=== PATIENT | female | born 1990 | race Caucasian/White ===

== ENCOUNTER 2020-07-18 06:49 | Outpatient (NON) | payer OTHER, SELFPAY ==
[2020-07-18 17:59] LABS: SARS-CoV-2 RNA PCR Negative
== END 2020-07-18 06:50 ==
PROVIDERS: PCP Family Medicine; Visit Provider Family Medicine
DX: Z20.828 Contact with and (suspected) exposure to other viral communicable diseases (principal); J02.9 Acute pharyngitis, unspecified; R50.9 Fever, unspecified; R51.9 Headache, unspecified
CPT/HCPCS: 87635; C9803; U0003

== ENCOUNTER 2020-09-15 06:54 | Outpatient (NON) | payer OTHER, SELFPAY ==
[2020-09-15 23:36] LABS: SARS-CoV-2 RNA PCR Negative
== END 2020-09-15 06:55 ==
LOC: ANHCOVIDDT 07:18
PROVIDERS: PCP Family Medicine; Visit Provider Family Medicine
DX: R51.9 Headache, unspecified (principal); R09.81 Nasal congestion; Z20.828 Contact with and (suspected) exposure to other viral communicable diseases
CPT/HCPCS: 87635; C9803; U0003

== ENCOUNTER 2020-10-01 10:55 | Outpatient (NON) | payer OTHER, SELFPAY ==
[2020-10-01 22:01] LABS: SARS-CoV-2 RNA PCR Negative
== END 2020-10-01 10:56 ==
LOC: ANHCOVIDDT 10:56
PROVIDERS: PCP Family Medicine; Visit Provider Physician Assistant
DX: Z20.828 Contact with and (suspected) exposure to other viral communicable diseases (principal); R68.89 Other general symptoms and signs
CPT/HCPCS: 87635; C9803; U0003

== ENCOUNTER 2021-10-26 12:16 | Emergency (ER) | payer OTHER, SELFPAY ==
[2021-10-26 12:22] VITALS: BP 129/89; PULSE 98; RESP 12; TEMP 36.9; O2SAT 100
--- NOTE | 2021-10-26 12:24 | ED.URI ---
HPI - URI/Sore Throat General Chief Complaint: Upper Respiratory Infection Stated Complaint: Congestion Time Seen by Provider: 10/26/21 12:27 Source: patient Mode of arrival: ambulatory Limitations: no limitations History of Present Illness HPI Narrative: 31-year-old female presenting for complaint of sinus pressure and congestion, headache, and nonproductive cough for about 3 days. She endorses sick contacts, boyfriend's covid negative. She is vaccinated for COVID, however needs a booster. Denies chest pain, palpitations, shortness of breath, wheezing, nausea, vomiting, diarrhea, fever or chills. MD elicited complaint: cough Related Data Home Medications Medication Instructions Recorded Confirmed venlafaxine 75 mg tablet 75 mg PO DAILY 10/28/19 Allergies Allergy/AdvReac Type Severity Reaction Status Date / Time No Known Allergies Allergy Verified 04/23/20 16:30 Review of Systems Review of Systems: CONSTITUTIONAL: denies malaise, chills, sweats, fever. EYES: Denies visual changes, redness, or discharge. ENT: Reports rhinorrhea, congestion, sinus pain denies otalgia and sore throat. CARDIOVASCULAR: Denies chest pain, palpitations, or edema. RESPIRATORY: Reports cough, post nasal drainage. Denies dyspnea. GASTROINTESTINAL: Denies abdominal pain, nausea, vomiting, diarrhea SKIN: Denies rash or itching. MUSCULOSKELETAL: Denies myalgia. NEUROLOGIC: Denies headache. [facility] Family History Family History Mother Family history of bipolar disorder Family history of migraine headaches Other No family history of cardiovascular disease No family history of hypertension Social History Social History Smoking status: Never smoker Alcohol intake: current Exam Narrative: GENERAL: Ill-appearing, nontoxic no acute distress. HEAD: Normocephalic EYES: PERRLA, conjunctivae clear ENT: Mucous membranes moist. TM pearly irizarry with dull light reflex Left; Right TM unable to visualize due to excess cerumen; no tragal tenderness. Oropharynx erythematous without lesions. NECK: Supple. No lymphadenopathy CHEST: Clear to auscultation, breath sounds equal. No wheezing, rhonchi, rales, or stridor. No respiratory distress, speaks in full sentences. HEART: Regular rate and rhythm. No murmur heard. SKIN: Warm, dry, no rash. NEURO: Alert and oriented x3. PSYCH: Normal mood and affect Course Course Emergency Course: Patient is aware of diagnosis, understands and agrees to treatment plan. Anticipatory guidance given. Patient agrees to follow-up as directed and is aware of reasons to seek care at the emergency department. Portions of this record may have been created with voice recognition software Level of Care: Express Care Visit Vital Signs Vital signs: reviewed Procedures Ear Wax Removal Right Ear: Ear Wax Removal Date: 10/26/21 Ear Wax Removal Time: 12:50 Cerumenolytic Used: other (water/peroxide) Results: Re-examined: cerumen removed completely TM Examination: TM(s) intact, normal appearance Ear Canal Exam: atraumatic Patient Tolerated Procedure: well Complications: no problems Technique: ear canal irrigated and ear canal curetted MDM - URI/Sore Throat Differential Diagnosis Differential diagnosis: Likely upper respiratory infection and viral infection Discharge Plan Discharge Clinical Impression: Cerumen impaction, URI (upper respiratory infection) Patient Disposition: Home, Self-Care Condition: Stable Instructions: Antibiotic Form, COVID-19 (Coronavirus Disease 2019) (ED) Additional Instructions: For ear wax impaction, use Debrox drops according to package directions. Your Rapid COVID test was negative today. If you are symptomatic with reason to believe you have COVID-19, there is a high possibility your rapid test may not have dete
== END 2021-10-26 13:02 | disposition home or self-care (01) ==
PROVIDERS: Emergency Provider Nurse Practitioner Family; PCP Family Medicine
DX: J06.9 Acute upper respiratory infection, unspecified (principal); H61.21 Impacted cerumen, right ear; Z20.822 Contact with and (suspected) exposure to COVID-19
CPT/HCPCS: 69210; 87426; 99213; A9270; C9803; G0463

== ENCOUNTER 2022-07-18 19:35 | Emergency (ER) | payer OTHER, SELFPAY ==
[2022-07-18 19:43] VITALS: BP 113/83; PULSE 86; RESP 16; TEMP 36.4; O2SAT 100
--- NOTE | 2022-07-18 19:52 | ED.WOUNDLAC ---
HPI - Wound/Laceration General Chief Complaint: Wound/Laceration Stated Complaint: upper lip injury Time Seen by Provider: 07/18/22 19:46 Source: patient, family, RN notes reviewed and old records reviewed Mode of arrival: ambulatory Limitations: no limitations History of Present Illness HPI narrative: 31-year-old female who presents to express care accompanied by spouse with a vertical injury from a cat claw which runs from below the right nares through the vermilion border into the top lip which is gaping with some bleeding noted.Wound cleansed with antibacterial soap and saline and saline dressing applied over wound. Dr Plaza notified per exchange of facial laceration and he reports he will meet patient in the ER for repair. Onset (ago): minute(s) (30 to 35 minutes ago.) Location: face Treatments prior to arrival: bandage Related Data Allergies Allergy/AdvReac Type Severity Reaction Status Date / Time adhesive Allergy Unknown Rash Verified 07/18/22 20:31 Review of Systems Review of Systems: CONSTITUTIONAL: Denies fever, chills, or sweats. EYES: Denies visual changes, redness, or discharge. ENT: Denies rhinorrhea, congestion, sore throat, or otalgia.positive for laceration from cat claw from below right nares vertically through upper lip gaping with minimal bleeding at his time. CARDIOVASCULAR: Denies chest pain, palpitations, or edema. RESPIRATORY: Denies cough or dyspnea. GASTROINTESTINAL: Denies abdominal pain, nausea, vomiting, or diarrhea. GENITOURINARY: Denies dysuria or hematuria. SKIN: Denies rash or itching.facial laceration as described above MUSCULOSKELETAL: Denies back pain, joint pain, or myalgia. NEUROLOGIC: Denies headache, numbness, or weakness. PSYCHIATRIC: Denies anxiety or depression. All systems reviewed & are unremarkable except as noted in HPI and below PMFSH Past Medical History Medical History (Updated 07/18/22 @ 21:00 by Anabel Cook NP) No pertinent past medical history Surgical History Surgical History (Updated 07/18/22 @ 20:59 by Elisabeth Akbar PA-C) No pertinent past surgical history Social History Social History (Updated 07/18/22 @ 20:49 by Anabel Cook NP) Smoking status: Never smoker Alcohol intake: unknown Substance use type: does not use Living arrangements: with family Gender identity (if verbalized by the patient): Female Comments At time of signature, agree with nursing past medical, surgical, social and family history. There is no relevant family history pertinent to the presenting complaint Exam Narrative: GENERAL: Well-appearing, well-nourished, and in no acute distress. HEAD: Normocephalic, atraumatic. EYES: PERRLA and EOMI. ENT: Nares clear, no rhinorrhea or epistaxis. Mucous membranes moist. TMs normal with good light reflex throat pink with no lesions or exudates NECK: Supple.no lymphadenopathy CHEST: Clear to auscultation. No respiratory distress. HEART: Regular rate and rhythm. No murmur heard. Normal peripheral pulses. ABDOMEN: Soft, nontender, nondistended, normal active bowel sounds. EXTREMITIES: Normal range of motion. No edema. SKIN: Warm, dry, vertical laceration underneath right nares extending into the upper lip from a cat claw gave minimal gaping with bleeding controlled NEURO: No focal deficits. Alert and oriented x3. Course Course Level of Care: Express Care Visit Vital Signs Vital signs: Vital Signs Temperature 36.4 C 07/18/22 19:43 Pulse Rate 86 07/18/22 19:43 Respiratory Rate 16 07/18/22 19:43 Blood Pressure 113/83 07/18/22 19:43 Pulse Oximetry 100 07/18/22 19:43 Oxygen Delivery Room Air 07/18/22 19:43 Temperature 36.4 C 07/18/22 19:43 Pulse Rate 86 07/18/22 19:43 Respiratory Rate 16 07/18/22 19:43 Blood Pressure 113/83 07/18/22 19:43 Pulse Oximetry 100 07/18/22 19:43 Oxygen Delivery Room Air 07/18/22 19:43 Transfer Transfered to: [facility]: Other (pr
== END 2022-07-18 20:12 | disposition short-term general hospital (02) ==
PROVIDERS: Emergency Provider Registered Nurse; PCP Internal Medicine
DX: S01.81XA Laceration without foreign body of other part of head, initial encounter (principal); S01.511A Laceration without foreign body of lip, initial encounter; W55.03XA Scratched by cat, initial encounter
CPT/HCPCS: 99212; G0463

== ENCOUNTER 2022-07-18 20:22 | Emergency (ER) | payer OTHER, SELFPAY ==
[2022-07-18 20:26] VITALS: BP 130/80; PULSE 81; RESP 16; TEMP 36.2; O2SAT 100
--- NOTE | 2022-07-18 20:52 | ED.WOUNDLAC ---
HPI - Wound/Laceration General Chief Complaint: Wound/Laceration <REBEKAH Jon Last Filed: 07/19/22 00:26> Stated Complaint: laceration to upper lip <REBEKAH Jon Last Filed: 07/19/22 00:26> Time Seen by Provider: 07/18/22 20:37 <REBEKAH Jon Last Filed: 07/19/22 00:26> Source: patient and old records reviewed <REBEKAH Jon Last Filed: 07/19/22 00:26> Mode of arrival: ambulatory <REBEKAH Jon Last Filed: 07/19/22 00:26> Limitations: no limitations <REBEKAH Jon Last Filed: 07/19/22 00:26> History of Present Illness HPI narrative: Patient is a 31-year-old female who presents the ED with report of laceration to her upper lip. Patient reports she was scratched by her cat today, sustaining a laceration from just below her right nostril through her upper lip. The cat is up to date on its shots and was seen at the vet this morning. Patient denies any other injuries. Bleeding controlled at the time of my evaluation. Patient was seen at urgent care and sent here. Dr. Rhodes was notified by urgent care and is coming in to see the patient. Tetanus status unknown. <REBEKAH Jon Last Filed: 07/19/22 00:26> Related Data Allergies/Adverse Reactions: Allergies Allergy/AdvReac Type Severity Reaction Status Date / Time adhesive Allergy Unknown Rash Verified 07/18/22 20:31 <REBEKAH Jon Last Filed: 07/19/22 00:26> Review of Systems Review of Systems: CONSTITUTIONAL: Denies fever. SKIN: Reports laceration to upper lip. <REBEKAH oJn Last Filed: 07/19/22 00:26> All systems reviewed & are unremarkable except as noted in HPI and below <REBEKAH Jon Last Filed: 07/19/22 00:26> [facility] Past Medical History Medical History: Medical History No pertinent past medical history <Elisabeth Akbar PA-C - Last Filed: 07/19/22 00:26> Surgical History Surgical History: Surgical History (Updated 07/18/22 @ 20:59 by Elisabeth Akbar PA-C) No pertinent past surgical history <Elisabeth Akbar PA-C - Last Filed: 07/19/22 00:26> Social History Social History: Social History Smoking status: Never smoker Alcohol intake: unknown Substance use type: does not use Living arrangements: with family Gender identity (if verbalized by the patient): Female <Elisabeth Akbar PA-C - Last Filed: 07/19/22 00:26> Exam Narrative: GENERAL: Well appearing, well-nourished, non-toxic, in no acute distress. HEAD: Normocephalic, atraumatic. EYES: PERRLA/EOMI. ENT: Clean relatively superficial vertical linear laceration from just below right nare extending through to upper lip, does go through [place] border, no through and through injury to inner oral mucosa. Bleeding controlled. Small punctate scratches to R facial cheek. NECK: Supple. No adenopathy, no masses. RESPIRATORY: Airway patent, respirations nonlabored. CARDIOVASCULAR: Regular rate and rhythm without murmurs, rubs, or gallops. Radial pulses 2+ and equal bilaterally. MUSCULOSKELETAL: Moves all extremities. Strength/ROM intact without gross deformities. SKIN: Warm, dry, normal color. No rashes. NEURO: A&O X3. Speech clear. Cranial nerves II-XII grossly intact. Steady gait. No ataxic movements. PSYCHIATRIC: Appropriate mood and affect. Normal interaction. <Elisabeth Akbar PA-C - Last Filed: 07/19/22 00:26> Course EXCHANGE SPECIALIST/PA Physician Supervision For this patient encounter, I reviewed the EXCHANGE SPECIALIST or PA documentation, treatment plan, and medical decision making <El Lubin MD - Last Filed: 07/19/22 00:41> Vital Signs Vital signs: Vital Signs Temperature 97.2 F L 07/18/22 20:26 Pulse Rate 81 07/18/22 20:26 Respiratory Rate
[2022-07-18] MEDS: TETANUS,DIPHTHERIA,AC PERTUSSIS ADULT (0.5 ML) BOOSTRIX IM (21:05)
[2022-07-18] MEDS: LIDOCAINE HCL 1% PF 30 ML VIAL 5 ML INFILTRATE (21:06)
--- NOTE | 2022-07-18 21:42 | W.PM.PROC2 ---
Procedure Note - Detailed Date of Procedure 07/18/22 Pre-op Diagnosis laceration to upper lip, 95% epithelium only. Post-op Diagnosis Same Procedure Performed Application of steri strips to two cm upper lip laceration Surgeon Rogelio Plaza MD Anesthesia None Indications Cat scratch couple hours ago. Findings 3 mm segment of full thickness skin injury on upper vermilion. Description of Procedure Benzoin applied to skin of upper lip. Two 2 cm strips of Steri strip applied to skin. Condition Stable Disposition Other (Home.)
[2022-07-18] MEDS: AMOXICILLIN/CLAVULANATE K 875-125 MG TAB 1 TABLET PO (21:52)
== END 2022-07-18 22:01 | disposition home or self-care (01) ==
PROVIDERS: Emergency Provider Emergency Medicine; PCP Internal Medicine
DX: S01.511A Laceration without foreign body of lip, initial encounter (principal); Z23 Encounter for immunization; W55.03XA Scratched by cat, initial encounter
CPT/HCPCS: 90471; 90715; 99283; A9270